=== PATIENT | male | born 1965 | race Caucasian/White ===

== ENCOUNTER 2024-05-28 11:57 | Emergency (ER) | payer BC ==
--- OUTSIDE RECORDS SUMMARY | 2024-05-28 12:00 | XMS REPORT | Continuity of Care Document ---
Author Name Unknown Address [address] [place] [address] [facility] thconnect Address [address] [place] [address] Care Team Providers Care Inspector Clip On Sunglasses Name Role Phone KAYLAN MAO Attending Clinician Unavailable DAVE VELASCO Attending Clinician Unavailab le [id number] Attending Clinician Unavailable Payers Payer Name Policy Type Policy Number Effective Date Expirati on Date Source [facility] 2 [id number] 2024 00:00:00 Problems Condition Name Condition Details Condition Category Status Onset Date Resolution Date Last Treatment Date Treating Clinician Comments Source Well adult exam Well adult exam Disease Active 2023-04 00:00: 00 Sisi Seybold - Externa l Pancreatic cyst (HHS-HCC) Pancreatic cyst (HHS-HCC) Disease Active 2023-04 00:00: 00 Sisi Seybold - Externa l Type 2 diabetes mellitus with morbid obesity (multi HCC) Type 2 diabetes mellitus with morbid obesity (multi HCC) Disease Active 2023-04 00:00: 00 Sisi Seybold - Externa l Hx of CABG Hx of CABG Disease Active 2023-04 00:00: 00 Sisi Seybold - Externa l CAD (coronary artery disease) CAD (coronary artery disease) Disease Active 2023-04 00:00: 00 Sisi Seybold - Externa l H/O heart artery stent H/O heart artery stent Disease Active 2023-04 00:00: 00 Sisi Seybold - Externa l Colon polyps Colon polyps Disease Active 2023-04 00:00: 00 Sisi smalls History of colon polyps History of colon polyps Disease Active 2023-04 00:00: 00 Sisi smalls LAILA (obstructi ve sleep apnea) LAILA (obstructi ve sleep apnea) Disease Active 2023-04 00:00: 00 Sisi smalls Primary hypertensi on Primary hypertensi on Disease Active 2023-04 00:00: 00 Sisi smalls Allergies, Adverse Reactions, Alerts Allergy Name Allergy Type Status Severity Reaction(s) Onset Date Inactive Date Treating Clinician Comments Source Ticagrel or Propensi ty to adverse reaction s Active Shortness of Breath 2023-04 00:00: 00 Sisi smalls Social History Social Habit Start Date Stop Date Quantity Comments Source History of tobacco use 2021-01-26 00:00:00 Cigarette Smoker Sisi Basilio - External Sexual orientation Nia Malloy External History of Social function 2024-03-25 00:00:00 2024-03-25 00:00:00 Sisi Basilio - External Sex 2024-01-23 08:23:52 2024-01-23 08:23:52 Male (finding) Sisi Basilio - External Sex assigned at 1965 00:00:00 1965 00:00:00 Sisi Malloy External Smoking Status Start Date Stop Date Source Ex-smoker 2024-02-13 00:00:00 2024-02-13 00:00:00 Nia Basilio - External Medications Ordered Medication Name Filled Medication Name Start Date Stop Date Current Medication? Ordering Clinician Indication Dosage Frequency Signature (SIG) Comments Components Source VITAMIN D, CHOLECALCIF MO, OR 2023-04 10:23: 25 Yes 100mg QD Take by mouth. Sisi smalls Cyanocobala min (B-12) 500 MCG sublingual SL Tab 2023-04 10:23: 25 Yes Inject into the skin. Sisi smalls Multiple Vitamin (Multivitam in Adult) oral Tablet 2023-04 10:23: 25 Yes Take by mouth. Sisi smalls Nitroglycer in 0.4 MG sublingual SL Tab 2023-04 10:23: [address] 1 tablet (0.4 mg total) under the tongue every 5 minutes as needed for chest pain 1 to 2 tablets under the tongue at onset of attack. Repeat as needed up to 3 times. If not relieved CALL 911.. Sisi smalls Clopidogrel Bisulfate (PLAVIX) 75 MG oral Tablet 2023-04 00:00: 00 Yes [id number] 75mg QD Take 1 tablet (75 mg total) by mouth daily. iSsi smalls Carvedilol 25 MG oral Tablet 2023-04 00:00: 00 Yes [id number] 25mg Take 1 tablet (25 mg total) by mouth in the morning and 1 tablet (25 mg total) in the evening. Take with meals. Sisi smalls VITAMIN D, CHOLECALCIF MO, OR 2023-04 15:22: 54 Yes 100mg QD Take by mouth. Sisi smalls Cyanocobala min (B-12) 500 MCG sublingual SL Tab 2023-04 15:22: 54 Yes Inject into the skin. Sisi smalls Multiple Vitamin (Multivitam in Adult) oral Tablet 2023-04 15:22: 54 Yes Take by mouth. Sisi smalls Nitroglycer in 0.4 MG sublingual SL Tab 2023-04 15:22: [address] 1 tablet (0.4 mg total) under the tongue every 5 minutes as needed for chest pain 1 to 2 tablets under the tongue at onset of attack. Repeat as needed up to 3 times. If not relieved CALL 911.. Sisi smalls Repatha SureClick 140 MG/ML subcutaneou s Solution Auto-inject or 2023-04 00:00: 00 Yes INJECT 1 ML (140 MG) SUBCUTANEO USLY EVERY 14 DAYS Sisi smalls Clopidogrel Bisulfate (PLAVIX) 75 MG oral Tablet 2023-04 00:00: 00 03-25 00:00 :00 No 75mg QD Take 1 tablet (75 mg total) by mouth daily. Sisi smalls Metformin HCl ER 500 MG oral TABLET SR 24 HR 2023-04 0 00:00: 00 Yes TAKE 3 TABLETS (1,500 MG) BY MOUTH DAILY (WITH DINNER) Sisi smalls Carvedilol 25 MG oral Tablet 2023-04 0- 00:00: 00 03-25 00:00 :00 No 25mg Take 1 tablet (25 mg total) by mouth in the morning and 1 tablet (25 mg total) in the evening. Take with meals. Sisi smalls Losartan Potassium (COZAAR) 100 MG oral Tablet 12-14 00:00: 00 Yes 100mg QD Take 1 tablet (100 mg total) by mouth daily. Sisi smalls OZEMPIC (0.25 or 0.5 mg/dose) 2 mg/3 mL SQ Solution Pen-Injecto r 11-24 00:00: 00 Yes .5mg Q1W Inject 0.5 mg into the skin once a week. Sisi smalls Immunizations Ordered Immunization Name Filled Immunization Name Date Status Comments Source Tdap- (Boostrix, Adacel) Unknown Completed Sisi Basilio - Kenny Shingles IM (Shingrix) Unknown Completed Sisi Basilio - Kenny pneumococcal, unspecified formulation Unknown Completed Sisi Basilio - External Vital Signs Vital Name Observation Time Observation Value Comments S ource Systolic blood pressure 2024-03-25 16:22:00 136 mm[Hg] Sisi Marie ld - External Diastolic blood pressure 2024-03-25 16:22:00 84 mm[Hg] Sisi Marie ld - External Heart rate 2024-03-25 16:22:00 89 /min Ludy Basilio - External Body temperature 2024-03-25 16:22:00 36.61 Wendi Sisi Basilio - External Respiratory rate 2024-03-25 16:22:00 20 /min Sisi Basilio - External Body height 2024-03-25 16:22:00 175.3 cm Maria A Basilio - External Body weight 2024-03-25 16:22:00 132.45 kg Maria A ey Seybold - External BMI 2024-03-25 16:22:00 43.12 kg/m2 Maria A ey Seybold - External Oxygen saturation in Arterial blood by Pulse oximetry 2024-03-25 16:22:00 97 /min Sisi Bradleyo ld - External Systolic blood pressure 2024-02-13 21:06:00 124 mm[Hg] Sisi De Oliveiraybo ld - External Diastolic blood pressure 2024-02-13 21:06:00 78 mm[Hg] Sisi Seybo ld - External Heart rate 2024-02-13 21:06:00 80 /min Ludy y Seybold - External Body temperature 2024-02-13 21:06:00 37.17 Wendi Sisi Seybold - External Respiratory rate 2024-02-13 21:06:00 18 /min Sisi De Oliveiraybold - External Body height 2024-02-13 21:06:00 175.3 cm Maria A ey Seybold - External Body weight 2024-02-13 21:06:00 133.131 kg Maria A ey Seybold - External BMI 2024-02-13 21:06:00 43.34 kg/m2 Maria A ey Seybold - External Oxygen saturation in Arterial blood by Pulse oximetry 2024-02-13 21:06:00 98 /min Sisi Bradleyo ld - External Encounters Start Date/Time End Date/Time Encounter Type Admission Type Attending [facility] Care Department Encounter ID Source 2024-05-27 08:36:11 2024-05-27 08:36:[address] [facility] [id number] Rodrigo Goodwin 2024-04-14 00:00:00 2024-04-14 00:00:00 Outpatient KAYLAN MAO [id number] Sisi clarke 2024-03-25 10:30:00 2024-03-25 10:30:00 Outpatient DAVE VELASCO [id number] Sisi Basilio 2024-03-05 00:00:00 2024-03-05 00:00:00 Outpatient DAVE VELASCO [id number] Sisi yoly 2024-03-03 08:25:2024-03-03 08:25:00 Outpatient LAB90 SISI CARDENAS [id number] Sisi Basilio 2024-02-13 15:30:00 2024-02-13 15:30:00 Outpatient DAVE VELASCO [id number] Sisi Basilio Notes Date/Time Note Provider Source 2024-02-13 15:22:55 Chief Complaint Patient presents with 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 Has pancreatic cyst. [facility]
[2024-05-28] MEDS ORDERED: MAGNES/ALUMIN/SIMET 30ML UCUP ONE (12:19)
[2024-05-28] MEDS ORDERED: ONDANSETRON 4 MG/2 ML VIAL ONE (12:19)
[2024-05-28] MEDS ORDERED: LIDOCAINE VISCOUS 2% 10ML ORAL SOLN ONE (12:20)
[2024-05-28] MEDS ORDERED: NA CHLORIDE 0.9% 1,000 ML ONE (12:20)
[2024-05-28] MEDS ORDERED: HALOPERIDOL LACT 5 MG/ML INJ ONE (12:20)
[2024-05-28 12:41] LABS: Absolute Basophils 0.1 K/uL (0-0.5); Absolute Monocytes 0.6 K/uL (0.1-1.3); Basophils % 0.4 % (0-1.3); Hematocrit 49.6 % (39.6-49.0); Hemoglobin 17.7 g/dL (13.6-17.9); Lymphocytes % 7.4 % (15.3-44.8); MCH 29.8 pg (27.0-35.0); MCHC 35.6 g/dL (32.0-36.0); MCV 83.8 fL (80-100); MPV 8.1 fL (7.6-11.3); Monocytes % 4.6 % (3.3-12.3); Neutrophils % 87.6 % (41.7-73.7); Nucleated Red Blood Cells % 0.1 % (0-0); Platelets 235 thou/uL (152-406); RBC Red Blood Cell Count 5.92 M/uL (4.33-5.43); Red Cell Distribution Width 13.3 % (12.1-15.2)
[2024-05-28 12:55] LABS: Troponin High Sensitivity 9.9 pg/mL (<58.9)
--- NOTE | 2024-05-28 13:01 | RAD REPORT ---
EXAMINATION: ONE VIEW CHEST XR CLINICAL INDICATION: CHEST PAIN TECHNIQUE: Frontal chest projection is submitted. Examination is limited by patient positioning and t echnique. COMPARISON: No prior exam. FINDINGS: Mild interstitial pulmonary edema. The heart is moderately enlarged in size. No displaced fractures i dentified. Sternotomy wires. IMPRESSION: Mild CHF is suspected.
[2024-05-28 13:22] LABS: Blood Morphology Comment NOT SEEN (NOT SEEN); Platelet Estimate ADEQ; White Blood Cell Scan OK (OK)
--- NOTE | 2024-05-28 13:51 | ER ---
Nurse's Notes [facility] Name: Delfino Rosado Age: 59 yrs Sex: Male : 1965 Arrival Date: 05/28/2024 Time: 11:57 Bed 3 Private MD: Diagnosis: Nausea with vomiting, unspecified;Chest pain, unspecified Presentation: 05/28 12:06 Chief complaint: Patient states: CP, HTN, and N/V for 3 days. Stopped at [place] before ll1 this, given Zofran. Coronavirus screen: Client denies travel out of the [place] in the last 14 days. At this time, the client does not indicate any symptoms associated with coronavirus-19. Ebola Screen: Patient denies travel to an Ebola-affected area in the 21 days before illness onset. Initial Sepsis Screen: Does the patient meet any 2 criteria? No. Patient's initial sepsis screen is negative. Does the patient have a suspected source of infection? No. Patient's initial sepsis screen is negative. Risk Assessment: Do you want to hurt yourself or someone else? Patient reports no desire to harm self or others. Onset of symptoms was May 26, 2024. 12:06 Method Of Arrival: Ambulatory ll1 12:06 Acuity: STACI 2 ll1 Triage Assessment: 12:09 General: Appears distressed, uncomfortable, Behavior is calm, cooperative, appropriate ll1 for age. Pain: Complains of pain in chest Pain currently is 2 out of 10 on a pain scale. Quality of pain is described as pressure. Cardiovascular: Reports chest pain, nausea, high BP. GI: Reports nausea, vomiting. Historical: - Allergies: 12:06 No Known Allergies; ll1 - PMHx: 12:06 Coronary atherosclerosis; Hypertensive disorder; Diabetes mellitus; ll1 - PSHx: 12:06 Coronary artery bypass graft; 2 heart stents; ll1 - Immunization history:: Adult Immunizations up to date. - Infectious Disease History:: Denies. - Social history:: Smoking status: Patient denies any tobacco usage or history of. - Family history:: not pertinent. Screenin:12 [facility] ED Fall Risk Assessment (Adult) History of falling in the last 3 months, bp including since admission No falls in past 3 months (0 pts) Confusion or Disorientation No (0 pts) Intoxicated or Sedated No (0 pts) Impaired Gait No (0 pts) Mobility Assist Device Used No (0 pt) Altered Elimination No (0 pt) Score/Fall Risk Level 0 - 2 = Low Risk Oriented to surroundings. Abuse screen: Denies threats or abuse. Denies injuries from another. Nutritional screening: No deficits noted. Tuberculosis screening: No symptoms or risk factors identified. Assessment: 12:10 General: Appears in no apparent distress. comfortable, Behavior is cooperative, bp appropriate for age, anxious. Pain: Complains of pain in chest. Neuro: No deficits noted. Cardiovascular: No deficits noted. Respiratory: No deficits noted. GI: Abdomen is non-distended. : No signs and/or symptoms were reported regarding the genitourinary system. EENT: No deficits noted. Derm: No deficits noted. Musculoskeletal: No deficits noted. 14:04 Reassessment: Patient appears in no apparent distress at this time. Patient is alert, bp oriented x 3, equal unlabored respirations, skin warm/dry/pink. Vital Signs: 12:06 BP 187 / 106; Pulse 72; Resp 18; Temp 97.3; Pulse Ox 97% ; Weight 130.63 kg; Height 5 ll1 ft. 9 in. ; Pain 2/10; 13:16 BP 180 / 88; Pulse 87; Resp 16 S; Pulse Ox 99% on R/A; aa5 14:04 BP 171 / 81; Pulse 85; Resp 16; Temp 98; Pulse Ox 98% ; bp 12:06 Body Mass Index 42.53 (130.63 kg, 175.26 cm) ll1 12:06 Pain Scale: Adult ll1 ED Course: 12:00 Patient arrived in ED. al6 12:00 Sp Prado MD is Attending Physician. rt 12:06 Arm band placed on Patient placed in an exam room, on a stretcher. ll1 12:09 Triage completed. ll1 12:10 Heriberto Marie, KATLYN is Primary Nurse. bp 12:12 Patient has correct armband on for positive identification. bp 12:25 Initial lab(s) drawn, by me, sent to lab. Inserted saline lock: 20 gauge in right aa5 wrist, using aseptic technique. Blood collected. Flushed with 10 mL NS. 12:58 XRAY Chest (1 view) In Process Unspecified. EDMS 14:04 No provider procedures requiring assistance completed. IV discontinued, intact, bp bleeding controlled, No redness/swelling at site. Pressure dressing applied. 14:05 Provided Education on: none. bp Administered Medications: 12:28 Drug: Haloperidol IVP 5 mg IVP once Route: IVP; Site: right wrist; aa5 14:06 Follow up: Response: No adverse reaction bp 12:28 Drug: Ondansetron IVP 4 mg IVP once; over 2 minutes Route: IVP; Site: right wrist; aa5 14:06 Follow up: Response: No adverse reaction bp 12:30 Drug: GI Cocktail without - (Maalox PO 30 ml, Lidocaine Mucous Membrane 2 % 15 aa5 ml) PO once Route: PO; 14:06 Follow up: Response: No adverse reaction bp 12:30 Drug: NS 0.9% IV 1000 ml IV at 1 bolus Per protocol; to be given as a bolus over 60 aa5 minutes Route: IV; Rate: 1 bolus; Site: right wrist; 14:06 Follow up: IV Status: Completed infusion bp Medication: 14:05 VIS not applicable for this client. bp Outcome: 13:50 Discharge ordered by . rt 14:04 Discharged to home ambulatory, bp 14:04 Condition: stable 14:04 Discharge instructions given to patient, Instructed on discharge instructions, follow up and referral plans. Demonstrated understanding of instructions, follow-up care, 14:06 Patient left the ED. bp Signatures: Dispatcher [employer] EDMS Paulina Carlos RN RN aa5 Heriberto Marie RN RN bp Mariola Batista RN RN ll1 Sp Prado MD MD rt Alba [email or web address] Corrections: (The following items were deleted from the chart) 12:41 12:41 NS 0.9% IV 1000 ml IV at 1 bolus in right wrist aa5 aa5
--- NOTE | 2024-05-28 13:52 | EDPHYS ---
Physician Documentation [facility] Name: Delfino Rosado Age: 59 yrs Sex: Male : 1965 Arrival Date: 05/28/2024 Time: 11:57 Bed 3 Private MD: ED Physician Sp Prado HPI: 05/28 13:47 This 59 yrs old Male presents to ER via Ambulatory with complaints of Nausea, Chest rt Pain. 13:47 Patient with history of coronary disease presents to the ED with nausea, vomiting for rt the past 3 days as well as a chest pain. The patient attributes this to taking Ozempic. Seen at [facility] prior to arrival, diomedes Deanna, had a negative troponin, BNP. Denies of acute complaints at this time, symptoms are moderate severity, no other aggravating or alleviating factors.. Historical: - Allergies: 12:06 No Known Allergies; ll1 - PMHx: 12:06 Coronary atherosclerosis; Hypertensive disorder; Diabetes mellitus; ll1 - PSHx: 12:06 Coronary artery bypass graft; 2 heart stents; ll1 - Immunization history:: Adult Immunizations up to date. - Infectious Disease History:: Denies. - Social history:: Smoking status: Patient denies any tobacco usage or history of. - Family history:: not pertinent. ROS: 13:54 Constitutional: Negative for fever, chills, and weight loss, Respiratory: Negative for rt shortness of breath, cough, wheezing, and pleuritic chest pain, MS/Extremity: Negative for injury and deformity, Skin: Negative for injury, rash, and discoloration, Neuro: Negative for headache, weakness, numbness, tingling, and seizure, 13:54 Cardiovascular: Positive for chest pain, Negative for edema, 13:54 Abdomen/GI: Positive for nausea and vomiting, Negative for abdominal pain, Exam: 13:54 Constitutional: This is a well developed, well nourished patient who is awake, alert, rt and in no acute distress. Head/Face: Normocephalic, atraumatic. Chest/axilla: Normal chest wall appearance and motion. Nontender with no deformity. No lesions are appreciated. Cardiovascular: Regular rate and rhythm with a normal S1 and S2. No gallops, murmurs, or rubs. Normal PMI, no JVD. No pulse deficits. Respiratory: Lungs have equal breath sounds bilaterally, clear to auscultation and percussion. No rales, rhonchi or wheezes noted. No increased work of breathing, no retractions or nasal flaring. Abdomen/GI: Soft, non-tender, with normal bowel sounds. No distension or tympany. No guarding or rebound. No evidence of tenderness throughout. Skin: Warm, dry with normal turgor. Normal color with no rashes, no lesions, and no evidence of cellulitis. MS/ Extremity: Pulses equal, no cyanosis. Neurovascular intact. Full, normal range of motion. 13:54 ECG was reviewed by the Attending Physician. Vital Signs: 12:06 BP 187 / 106; Pulse 72; Resp 18; Temp 97.3; Pulse Ox 97% ; Weight 130.63 kg; Height 5 ll1 ft. 9 in. ; Pain 2/10; 13:16 BP 180 / 88; Pulse 87; Resp 16 S; Pulse Ox 99% on R/A; aa5 14:04 BP 171 / 81; Pulse 85; Resp 16; Temp 98; Pulse Ox 98% ; bp 12:06 Body Mass Index 42.53 (130.63 kg, 175.26 cm) ll1 12:06 Pain Scale: Adult ll1 MDM: 12:07 Medical Screening Exam initiated rt 13:54 Differential diagnosis: Medication side effect, ACS, pancreatitis. Data reviewed: vital rt signs, nurses notes, lab test result(s), EKG, radiologic studies. Consideration of Admission/Observation Escalation of care including admission/observation considered. Patient is feeling better after Haldol, GI cocktail, is requesting discharge. I discussed with Dr. Sandoval at [facility], he already had 1 negative troponin today, now he essentially is 2 negative troponins. He has an appointment already scheduled with a hooker off, believe that he is stable for outpatient care, strict return precautions were discussed.. I considered the following discharge prescriptions or medication management in the emergency department Medications were administered in the Emergency Department. See MAR. Independent interpretation of the following test(s) in the Emergency Department X-Ray: My interpretation is No pneumonia seen on interpretation of x-ray images. Test considered but Not performed: CT: Benign abdominal examination, labs, do not believe that CT scan of the abdomen is indicated. Care significantly affected by the following chronic conditions: Diabetes, Hypertension. Counseling: I had a detailed discussion with the patient and/or guardian regarding the historical points, exam findings, and any diagnostic results supporting the discharge/admit diagnosis, lab results, radiology results, the need for outpatient follow up, to return to the emergency department if symptoms worsen or persist or if there are any questions or concerns that arise at home. Response to treatment: the patient's symptoms have markedly improved after treatment. 14:05 Scoring Tools HEART Score: History: Slightly Suspicious (0) ECG: Normal (0) Age: > 45 rt and < 65 years (1) Risk Factors: > or = 3 Risks factors for Atherosclerotic disease (2) Troponin: < or = 1 x Normal limit (0) Total Score = 3. 05/28 12:12 Order name: Basic Metabolic Panel; Complete Time: 13: aa5 05/28 12:12 Order name: CBC with Diff; Complete Time: 13:33 aa5 05/28 12:12 Order name: Troponin HS; Complete Time: 13: aa05/28 12:15 Order name: Lipase; Complete Time: 13: rt 05/28 12:45 Order name: CBC Smear Scan; Complete Time: 13:33 EDMS 05/28 12:12 Order name: XRAY Chest (1 view); Complete Time: 13:22 aa05/28 12:12 Order name: Cardiac monitoring; Complete Time: 12:12 aa05/28 12:12 Order name: EKG - Nurse/Tech; Complete Time: 12:13 aa05/28 12:12 Order name: IV Saline Lock; Complete Time: 12:40 aa05/28 12:12 Order name: Labs collected and sent; Complete Time: 12:40 05/28 12:12 Order name: O2 Per Protocol; Complete Time: 12:12 05/28 12:12 Order name: O2 Sat Monitoring; Complete Time: 12:12 aa EC:54 Rate is 73 beats/min. Rhythm is regular, 1st Degree Block with Right bundle branch rt block. QRS [place] is Normal. [place] interval is normal. QRS interval is normal. QT interval is normal. No Q waves. No ST changes noted. Interpreted by me. Administered Medications: 12:28 Drug: Haloperidol IVP 5 mg IVP once Route: IVP; Site: right wrist; aa5 14:06 Follow up: Response: No adverse reaction bp 12:28 Drug: Ondansetron IVP 4 mg IVP once; over 2 minutes Route: IVP; Site: right wrist; aa5 14:06 Follow up: Response: No adverse reaction bp 12:30 Drug: GI Cocktail without - (Maalox PO 30 ml, Lidocaine Mucous Membrane 2 % 15 aa5 ml) PO once Route: PO; 14:06 Follow up: Response: No adverse reaction bp 12:30 Drug: NS 0.9% IV 1000 ml IV at 1 bolus Per protocol; to be given as a bolus over 60 aa5 minutes Route: IV; Rate: 1 bolus; Site: right wrist; 14:06 Follow up: IV Status: Completed infusion bp Disposition Summary: 05/28/24 13:50 Discharge Ordered Notes: Location: Home rt Problem: new rt Symptoms: have improved rt Condition: Stable rt Diagnosis - Nausea with vomiting, unspecified rt - Chest pain, unspecified rt Followup: rt - With: Private Physician - When: 2 - 3 days - Reason: Discharge Instructions: - Discharge Summary Sheet rt - Nonspecific Chest Pain, Adult rt - Nausea and Vomiting, Adult rt Forms: - Medication Reconciliation Form rt - Antibiotic Education rt - Prescription Opioid Use rt - Patient Portal Instructions rt - Leadership Thank You Letter rt Signatures: Dispatcher [employer] EDPaulina Munoz RN RN aa5 Heriberto Marie RN RN bp Mariola Batista RN RN ll1 Sp Prado MD MD rt Corrections: (The following items were deleted from the chart) 12:12 12:12 BASIC METABOLIC PANEL+C.LAB.BRZ ordered. EDMS EDMS 12:12 12:12 CBC+H.LAB.BRZ ordered. EDMS EDMS 12:12 12:12 Troponin High Sensitivity+C.LAB.BRZ ordered. EDMS EDMS 12:12 12:12 Chest Single View+RAD.RAD.BRZ ordered. EDMS EDMS
[2024-05-29 15:38] VITALS: BP 171/81; TEMP 98; O2SAT 98
--- NOTE | 2024-06-01 12:17 | EKG ---
Test Date: 2024-05-28 Test Time: 12:09:14 Health Education Director: SHANNON MEASUREMENT RESULTS: Intervals: Rate: 73 NV: 210 QRSD: 108 QT: 396 QTc: 436 [place]: P: 59 NV: 210 QRS: 87 T: 75 INTERPRETIVE STATEMENTS: Sinus rhythm with 1st degree AV block Incomplete right bundle branch block Borderline ECG No previous ECG available for comparison Electronically Signed On 06-01-24 12:12:51 FILE DRAWER FINISHER by [place] Mcneal
== END 2024-05-28 14:06 | disposition home or self-care (01) ==
LOC: ER 11:57
DX: R11.2 Nausea with vomiting, unspecified (principal); R07.9 Chest pain, unspecified; I10 Essential (primary) hypertension; Z95.1 Presence of aortocoronary bypass graft; Z95.818 Presence of other cardiac implants and grafts
CPT/HCPCS: 96361; 93005; 85025; 80048; 36415; 84484; 83690; 71045; 96375; 96374; 99284; J1630; J2405; J7030